=== PATIENT | female | born 1970 | race Caucasian/White ===

== ENCOUNTER → 2018-08-21 | Outpatient (CLI) | payer BC ==
[~2018-08-21] MED LIST: HYDR-2758 PO; MELO7.5T29 PO; TERB250T11 PO
[2018-08-21 15:21] LABS: BASO % 1 % (0-3); EOS # 0.2 x10^3/uL (0.0-0.7); EOS % 3 % (0-3); HEMATOCRIT 37.2 % (36.0-47.0); HEMOGLOBIN 12.9 g/dL (12.0-15.5); LYMPH # 1.2 x10^3/uL (1.0-4.8); LYMPH % 23 % (24-48); MEAN CORPUSCULAR HEMOGLOBIN 30 pg (25-35); MEAN CORPUSCULAR HGB CONC 35 g/dL (31-37); MEAN CORPUSCULAR VOLUME 87 fL (79-100); MONO # 0.6 x10^3/uL (0.0-1.1); MONO % 12 % (0-9); NEUT # 3.1 x10^3uL (1.8-7.7); NEUT % 61 % (31-73); PLATELET COUNT 283 x10^3/uL (140-400); RED BLOOD COUNT 4.26 x10^6/uL (3.50-5.40); RED CELL DISTRIBUTION WIDTH 14.7 % (11.5-14.5); WHITE BLOOD COUNT 5.1 x10^3/uL (4.0-11.0)
[2018-08-21 15:22] LABS: BILIRUBIN,URINE NEGATIVE (NEG); CLARITY,URINE CLEAR; COLOR,URINE YELLOW; NITRITE,URINE NEGATIVE (NEG); PH,URINE 6.5; PROTEIN,URINE NEGATIVE (NEG-TRACE); UROBILINOGEN,URINE 0.2 mg/dL (0.2 mg/dL)
--- NOTE | 2018-08-21 15:32 | RAD ---
Chest, 2 views, 08/21/2018: HISTORY: Preop evaluation for hysterectomy The heart size is normal. No pulmonary infiltrate is seen. There is no evidence of pleural fluid. IMPRESSION: No acute cardiopulmonary abnormality is detected. Electronically signed by: Delmer Ramos MD (08/21/2018 3:28 PM) [facility]
[2018-08-21 15:35] LABS: BACTERIA,URINE 0 /HPF (0-FEW); SQUAMOUS EPITHELIAL CELL,UR MOD /LPF; WBC,URINE OCC /HPF (0-4)
[2018-08-21 15:47] LABS: ALBUMIN 3.5 g/dL (3.4-5.0); ALBUMIN/GLOBULIN RATIO 0.9 (1.0-1.7); CALCIUM 8.8 mg/dL (8.5-10.1); CREATININE 0.6 mg/dL (0.6-1.0); GFR 106.7; POTASSIUM 3.9 mmol/L (3.5-5.1); TOTAL BILIRUBIN 0.3 mg/dL (0.2-1.0); TOTAL PROTEIN 7.3 g/dL (6.4-8.2)
== END ==
LOC: SURGPAT 14:16
PROVIDERS: ATTEND Obstetrics & Gynecology
DX: Z01.818 Encounter for other preprocedural examination (principal)
CPT/HCPCS: 36415; 71046; 80053; 81001; 85025

== ENCOUNTER 2018-08-26 05:47 | Inpatient (IN) | payer BC ==
[~2018-08-26] VITALS: Ht 175.3 cm; Wt 73.5 kg
[2018-08-26] VITALS (11 sets, daily range): BP systolic 92–116; BP diastolic 56–72
[~2018-08-26 05:47] MED LIST changes: +BUPIVAC MPF-EPI 0.5%-1:200000 30 ML VIAL. ONE; +VASOPRESSIN 20 UNIT/ML VIAL. ONE
[2018-08-26] MEDS ORDERED: fentaNYL PF VIAL 100 MCG/2 ML VIAL IV PRN (06:00)
[2018-08-26] MEDS ORDERED: MIDAZOLAM HCL/PF 2 MG/2 ML VIAL. IV PRN (06:00)
[2018-08-26] MEDS ORDERED: LIDOCAINE 1% PF 2 ML VIAL. ID PRN (06:00)
[2018-08-26 06:28] LABS: U PREG PATIENT NEGATIVE (NEG)
[2018-08-26] MEDS: IV RINGERS,LACTATED 1000ML 1,000 ML IV SCH ×2 (06:45→10:31)
[2018-08-26] MEDS ORDERED: fentaNYL PF VIAL 250 MCG/5 ML VIAL ONE (07:13)
[2018-08-26] MEDS ORDERED: MIDAZOLAM HCL/PF 2 MG/2 ML VIAL. ONE (07:13)
[2018-08-26] MEDS ORDERED: ROCURONIUM 50 MG/5 ML VIAL. ONE ×2 (07:13→08:24)
[2018-08-26] MEDS ORDERED: PROPOFOL 20 ML IV ONE ×2 (07:58→09:20)
[2018-08-26] MEDS ORDERED: SEVOFLURANE 61 TO 120 MINUTES. IH ONE (07:58)
[2018-08-26] MEDS ORDERED: KETOROLAC 30 MG/ML INJ FOR OR. INJ ONE (07:58)
[2018-08-26] MEDS ORDERED: DEXAMETHASONE SOD PHOS 20 MG/5 ML VIAL. ONE (07:58)
[2018-08-26] MEDS ORDERED: GLYCOPYRROLATE 1 MG/5 ML VIAL. ONE (07:59)
[2018-08-26] MEDS ORDERED: ONDANSETRON PF 4 MG/2 ML VIAL. ONE (07:59)
[2018-08-26] MEDS ORDERED: ePHEDrine PF IN SALINE 50 MG/5 ML DISP.SYRIN IV ONE (07:59)
[2018-08-26] MEDS ORDERED: NEOSTIGMINE METHYLSULFATE 5 MG/5 ML SYRINGE. ONE (08:00)
[2018-08-26] MEDS ORDERED: PHENYLEPHRINE in 0.9% NACL PF 1 MG/10 ML SYRINGE. IV ONE (08:23)
[2018-08-26] MEDS ORDERED: fentaNYL PF VIAL 100 MCG/2 ML VIAL ONE (09:53)
--- NOTE | 2018-08-26 09:59 | PDOC ---
BRIEF OPERATIVE NOTE Date: Aug 26, 2018 Pre-Op Diagnosis menorrhagia, enlarged fibroid uterus Post-Op Diagnosis same Procedure Performed JOSE/bilateral salpingectomy Surgeon Dr. Deepti Mane Early Childhood Director Brianna Severino, assistant cook RN Anesthesiologist Dr. Alves Anesthesia Type: General Blood Loss 400cc IV Fluid see anesthesia records Urine Output 200cc clear via valentine Specimens Obtained cervix, uterus, bilateral tubes and seperate right pedunculated mass (likely fibroid but having pathology look at it as a fresh specimen just in case) no pelvic adhesive disease Findings very enlarged fibroid uterus, normal bilateral tubes and ovaries, no significant pelvic adhesive disease, large peduncluated mass off right cornua of uterus in RUQ Complications none Operative Note [id number] DEEPTI MANE MD Aug 26, 2018 09:59
[2018-08-26] MEDS ORDERED: PROCHLORPERAZINE 10 MG/2 ML VIAL. ONE (10:08)
[2018-08-26] MEDS ORDERED: ZOLPIDEM 5 MG TABLET. PO PRN (10:15)
[2018-08-26] MEDS ORDERED: SIMETHICONE 80 MG TAB.CHEW PO PRN (10:15)
[2018-08-26] MEDS ORDERED: diphenhydrAMINE 50 MG/ML VIAL IV PRN (10:15)
[2018-08-26] MEDS ORDERED: diphenhydrAMINE HCL 25 MG CAPSULE PO PRN (10:15)
[2018-08-26] MEDS ORDERED: MAGNESIUM HYDROXIDE 2,400 MG/30 ML ORAL.SUSP. PO PRN (10:15)
[2018-08-26] MEDS ORDERED: LACTULOSE 20 GM/30 ML SOLUTION. PO PRN (10:15)
[2018-08-26] MEDS ORDERED: NALOXONE 0.4 MG/ML VIAL. IV PRN (10:15)
[2018-08-26] MEDS ORDERED: ONDANSETRON PF 4 MG/2 ML VIAL. IV PRN (10:15)
[2018-08-26] MEDS ORDERED: METOCLOPRAMIDE HCL 10 MG/2 ML VIAL. IV PRN (10:15)
[2018-08-26] MEDS ORDERED: CALCIUM CARBONATE 500 MG TAB.CHEW PO PRN (10:15)
[2018-08-26] MEDS ORDERED: MAG HYDROX/ALUMINUM HYD/SIMETH 30 ML ORAL.SUSP PO PRN (10:15)
[2018-08-26] MEDS ORDERED: 0.9 % SODIUM CHLORIDE 10 ML DISP.SYRIN. IV PRN (10:15)
[2018-08-26] MEDS ORDERED: MORPHINE SULFATE 2 MG/ML VIAL. IV PRN (10:19)
[2018-08-26] MEDS: MORPHINE SULFATE 2 MG/ML VIAL. IV PRN ×3 (10:19→11:47)
[2018-08-26] MEDS: fentaNYL PF VIAL 100 MCG/2 ML VIAL IV PRN ×2 (10:21→10:32)
[2018-08-26] MEDS ORDERED: PROCHLORPERAZINE 10 MG/2 ML VIAL. IV PRN (10:30)
[2018-08-26] MEDS: KETOROLAC 30 MG/ML VIAL. IV PRN ×2 (11:47→17:27)
--- NOTE | 2018-08-26 12:03 | OP ---
DATE OF SURGERY: 08/26/2018 PREOPERATIVE DIAGNOSIS: An enlarged, likely fibroid uterus with menorrhagia, large, greater than 27 cm abdominal mass, especially extending into the right upper quadrant. POSTOPERATIVE DIAGNOSIS: An enlarged, likely fibroid uterus with menorrhagia, large, greater than 27 cm abdominal mass, especially extending into the right upper quadrant. PROCEDURE: Total abdominal hysterectomy and bilateral salpingectomy. SURGEON: Parish Gifford M.D. [employer] SAL[employer] BEAUTY ADVISOR: Brianna , first, assistant professor in family studies. ANESTHESIOLOGIST: Driss Plummer M.D. ANESTHESIA: General endotracheal. ESTIMATED BLOOD LOSS: 400 mL. URINE OUTPUT: 200 mL clear via Gomez catheter. SPECIMENS OBTAINED: Cervix, uterus, bilateral tubes and a separate, what appears to be a large right pedunculated mass of the right cornua of the uterus, likely a fibroid, but I am having pathology look at it right now as a first specimen. No significant pelvic adhesive disease. FINDINGS: A very enlarged fibroid uterus, normal bilateral tubes and ovaries. No significant pelvic adhesive disease, large pedunculated mass of the right cornua that was extending into the right upper quadrant. COMPLICATIONS: None. DESCRIPTION OF PROCEDURE: This patient was taken to the operating room, where general anesthesia was placed. The patient was placed in a dorsal supine position. A Gomez catheter was inserted under sterile technique after anesthesia was induced. Upon my arrival, she had already received her antibiotics, was supine with a catheter and prepped and draped and once everyone agreed on the timeout, scrubbed and I was gowned and gloved, a transverse Pfannenstiel skin incision was made with the scalpel, carried down to the underlying layer of the fascia with the Bovie cautery. Cautery was used to obtain hemostasis in the subcuticular layer. Fascia was scored in the midline and extended sharply bilaterally with the Nesbitt scissors. Hubert clamps x 2 were placed on the superior fascial edge and the fascia was dissected from the rectus muscles beneath sharply and bluntly. This was done inferiorly as well down to the level of the pubic bone. Going high under the umbilicus, the rectus muscles were in the midline and the peritoneum was digitally and bluntly entered and stretched. The Metzenbaum scissors were used to sharply take down the filmy peritoneum and then stretched again. I was able to lift part of the uterus. It was multilobulated, enlarged, with multiple small and large fibroids. One or two of the fibroids were small and actually were almost like handles and when manipulating, they had kind of even torn off and those were passed off for permanent pathology. I was not able to get the mass out of the right upper quadrant through the small transverse Pfannenstiel skin incision with the large. So, I crossed the cornua of the uterus with curved Heaneys x 2 and left a Ottoniel on the mass and then tied off the other Ottoniel on the right cornua. I was able to then lift out the enlarged fibroid uterus and identify normal anatomy. So, starting on the left side, crossing the round ligament, stick tying it x 2 with 0 Vicryl using the Bovie cautery in the middle, going down and making that bladder flap anteriorly, this was done exactly the same on the right side, getting the round ligament in 2 spots with the stick tied to 0 Vicryl, then cauterizing in the middle and going down and meeting that bladder flap, taking it down sharply and bluntly with the Metzenbaum scissors, placing a curved Mora inside the bladder flap and then using a Ray-Paul to gently push down the bladder peritoneum and making sure it was off the uterus and cervix. At this point, a Ottoniel was used to go under the tube. It was very enlarged and vascular due to the uterus and go under it to do the salpingectomy, I placed the Ottoniel and then used the cautery to go above it and then used a free tie on the Ottoniel on both sides to free up the tube. Then going through the uterine-ovarian pedicle, using a clear window and cauterizing over my finger, placing curved Heaneys x 2 around the uterine-ovarian pedicle, placing Pean on both the cornua of the uterus, leaving both ovaries per the patient request, crossing the uterine-ovarian pedicle x 2, cutting and then tying x 2 with a stick tie before and after like a [place] tree stretch and then a stick tie. This was done on both sides, leaving both ovaries. Once this was done, skeletonization was performed on both sides until the uterine vessels could be obtained on both sides, placing curved Heaneys on both sides and then a straight Hubert on the back bleeding above on both sides and cutting it with the Nesbitt scissors and suture ligating it x 2. This was done on both uterines. So, starting on the right side, double clamping the uterines with curved Heaneys and then stick tying x 2 on both sides, starting on the right and then on the left. Once I did this, I made sure the bladder flap was down again and once it was assured to be down, taking straight Heaneys inside that pedicle, staying hugging right on the cervix, elevating the uterus, pulling it up and staying right on the cervix using straight Heaneys x 2 and then the knife to cut it and stick tying it x 2. This was done on both sides down to the level of the uterosacral, so 2-3 bites through the cardinal and broad ligaments with straight Heaneys. Once I got down to the uterosacrals on the right side, I was able to doubly clamp with curved Heaneys and when I cut with the Nesbitt scissors, I was in the vagina and the cervix popped out. I then used the Gely's to go around under visualization and amputate the remainder of the specimen. I placed Kochers on the anterior and posterior vaginal cuff respectively and then I used 0 Vicryl at the corners on both sides coming from inside out and through the uterosacrals that I had tagged and tagging the corners again and then 3 or 4 interrupted [id number] stitches to go across the vaginal cuff, closing the vaginal cuff. Once this was done, I then went back in and delivered the remaining pedicle. The big enlarged fibroid that came out and it was easily delivered in toto. Copious irrigation revealed hemostasis. I did place Lori over the pedicles and cuff just to be sure and looked at them several times and they were hemostatic, but the abdomen was further examined. I made sure the pericolic gutters were clear, that there were no clots or any debris left in after this mass was removed. The mass was almost equally as big as the uterus and the uterus was greater than 16-18 cm and then there was another 16-18 cm mass that was pedunculated off the right cornua that was separate. Once it was done, and the irrigation was hemostatic and Lori was placed and re-examined, the fascia was closed from left to midline with 0 Vicryl and then right to midline and tied together. Before tying it together, I did look in the pelvis one more time to make sure it was hemostatic and it was. The subcuticular layer was irrigated and was clear. There was no more bleeding. A 3-0 Vicryl was used to close the subcuticular layer and then 3-0 Monocryl was used to close the skin with Steri-Strips. All sponge, lap and needle counts were correct x 2. The patient was awakened from anesthesia, extubated and brought to recovery room in stable condition. PARISH GIFFORD MD DR: REKHA/larissa JOB#: [id number] / [id number]
[2018-08-26] MEDS: oxyCODONE/APAP 5/325 1 TAB TABLET PO PRN ×2 (16:24→21:01)
[2018-08-27 05:58] LABS: CALCIUM 7.9 mg/dL (8.5-10.1); CREATININE 0.6 mg/dL (0.6-1.0); GFR 106.7; POTASSIUM 4.3 mmol/L (3.5-5.1)
[2018-08-27 06:11] VITALS: BP 87/59
[2018-08-27] MEDS: HYDROcodone/APAP 5/325MG 1 TAB TABLET PO PRN ×3 (06:24→20:54)
[2018-08-27] MEDS: KETOROLAC 30 MG/ML VIAL. IV PRN (10:53)
[2018-08-27 12:30] VITALS: BP 104/49
--- NOTE | 2018-08-27 12:38 | PDOC ---
SURGICAL PROGRESS NOTE Subjective Doing well without complaints. Scant spotting when urinating, but ambulating and urinating without catheter. Tolerating regular diet without n/v. Vital Signs Vital Signs Date Time Temp Pulse Resp B/P (MAP) Pulse Ox O2 Delivery O2 Flow Rate FiO2 08/27/18 06:11 98.3 75 16 87/59 (68) 98.3 08/26/18 23:11 94 08/26/18 19:55 Nasal Cannula 2.0 I&O Intake and Output 08/27/18 07:00 Intake Total 4370 ml Output Total 2125 ml Balance 2245 ml Intake Oral 1020 ml IV Total 2050 ml Other 1300 ml Output Urine Total 1325 ml Estimated Blood Loss 800 ml PATIENT HAS A RUST: No General: Alert, Oriented X3, Cooperative, No acute distress HEENT: Atraumatic Heart: Regular rate Abdomen: Soft, No tenderness, Other (incision c/d/i with steri strips in place) Extremities: No clubbing, No cyanosis, No edema, No tenderness/swelling Skin: No rashes, No breakdown Neuro: Normal speech Psych/Mental Status: Mental status NL, Mood NL Labs Laboratory Tests Test 08/26/18 06:25 08/27/18 04:20 08/27/18 04:25 Urine Test Negative (NEG) Sodium Level 141 mmol/L (136-145) Potassium Level 4.3 mmol/L (3.5-5.1) Chloride Level 108 mmol/L (98-107) Carbon Dioxide Level 26 mmol/L (21-32) Anion Gap 7 (6-14) Blood Urea Nitrogen 9 mg/dL (7-20) Creatinine 0.6 mg/dL (0.6-1.0) Estimated GFR (Cockcroft-Gault) 106.7 Glucose Level 115 mg/dL (70-99) Calcium Level 7.9 mg/dL (8.5-10.1) Hematocrit 26.6 % (36.0-47.0) Laboratory Tests Test 08/27/18 04:20 08/27/18 04:25 Sodium Level 141 mmol/L (136-145) Potassium Level 4.3 mmol/L (3.5-5.1) Chloride Level 108 mmol/L (98-107) Carbon Dioxide Level 26 mmol/L (21-32) Anion Gap 7 (6-14) Blood Urea Nitrogen 9 mg/dL (7-20) Creatinine 0.6 mg/dL (0.6-1.0) Estimated GFR (Cockcroft-Gault) 106.7 Glucose Level 115 mg/dL (70-99) Calcium Level 7.9 mg/dL (8.5-10.1) Hematocrit 26.6 % (36.0-47.0) I have reviewed the following labs, vitals and nursing Cardiovascular: No pertinent hx Pulmonary: No pertinent hx GI: No pertinent hx Heme/Onc: Anemia NOS Psych: No pertinent hx Assessment/Plan POD#1 s/p JOSE/bilateral salpingectomy Routine PO care anemia--start bid iron with meals continue to ambulate and watch today for progress if all goes well today, possible d/c tomorrow PARISH GIFFORD MD Aug 27, 2018 12:38
[2018-08-27 15:45] VITALS: BP 105/68
[2018-08-27] MEDS: oxyCODONE/APAP 5/325 1 TAB TABLET PO PRN (16:01)
[2018-08-27] MEDS: FERROUS SULFATE 325 MG TABLET. PO SCH (16:02)
[2018-08-27 18:20] VITALS: BP 98/57
[2018-08-27 21:06] VITALS: BP 110/71
[2018-08-28 02:39] VITALS: BP 116/75
[2018-08-28] MEDS: HYDROcodone/APAP 5/325MG 1 TAB TABLET PO PRN ×2 (02:42→13:55)
[2018-08-28] MEDS: FERROUS SULFATE 325 MG TABLET. PO SCH (07:37)
[2018-08-28] MEDS: oxyCODONE/APAP 5/325 1 TAB TABLET PO PRN ×2 (07:37→12:36)
[2018-08-28] MEDS ORDERED: DOCUSATE SODIUM 100 MG CAPSULE. PO PRN (08:30)
[2018-08-28] MEDS ORDERED: IBUPROFEN 400 MG TABLET. PO PRN (08:30)
--- NOTE | 2018-08-28 08:56 | PDOC ---
SURGICAL PROGRESS NOTE Subjective Doing well without complaints. Voiding without problems, tolerating full diet, ambulating well. Wants to go home today Vital Signs Vital Signs Date Time Temp Pulse Resp B/P (MAP) Pulse Ox O2 Delivery O2 Flow Rate FiO2 08/28/18 07:37 18 Room Air 08/28/18 02:42 95 95.0 08/28/18 02:39 98.7 79 116/75 (89) 98.7 I&O Intake and Output 08/28/18 07:00 Output Total 375 ml Balance -375 ml Output Urine Total 375 ml PATIENT HAS A RUST: No General: Alert, Oriented X3, Cooperative, No acute distress HEENT: Atraumatic Heart: Regular rate Abdomen: Soft, No tenderness, Other (incision c/d/i with steri strips) Extremities: No clubbing, No cyanosis, No edema, No tenderness/swelling Skin: No rashes, No breakdown Neuro: Normal speech Psych/Mental Status: Mental status NL, Mood NL Labs Laboratory Tests Test 08/27/18 04:20 08/27/18 04:25 Sodium Level 141 mmol/L (136-145) Potassium Level 4.3 mmol/L (3.5-5.1) Chloride Level 108 mmol/L (98-107) Carbon Dioxide Level 26 mmol/L (21-32) Anion Gap 7 (6-14) Blood Urea Nitrogen 9 mg/dL (7-20) Creatinine 0.6 mg/dL (0.6-1.0) Estimated GFR (Cockcroft-Gault) 106.7 Glucose Level 115 mg/dL (70-99) Calcium Level 7.9 mg/dL (8.5-10.1) Hematocrit 26.6 % (36.0-47.0) I have reviewed the following labs, vitals, nursing Cardiovascular: No pertinent hx Pulmonary: No pertinent hx GI: No pertinent hx Heme/Onc: Anemia NOS Psych: No pertinent hx Rheumatologic: No pertinent hx Assessment/Plan POD#2 s/p JOSE/bilateral salpingectomy routine po care d/c to home later today already has pain script at home may alternate OTC ibuprofen as needed keep scheduled follow up with me in the office call or return sooner for any other questions or concerns not limited to but including pain unrelieved with pain meds, increased or unexplained vaginal bleeding or T>100.4 NPV x 6 weeks light/limited activity x [address] while on narcotic pain pills PARISH GIFFORD MD Aug 28, 2018 08:56
--- NOTE | 2018-08-28 09:00 | PDOC3 ---
Discharge Summary Visit Information Date of Admission: Aug 26, 2018 Date of Discharge: Aug 28, 2018 Admitting Diagnosis Comment: menorrhagia, enlarged fibroid uterus Brief Hospital Course Allergies Allergies Coded Allergies Type Severity Reaction Last Updated Verified No Known Drug Allergies 08/26/18 No Vital Signs Vital Signs Date Time Temp Pulse Resp B/P (MAP) Pulse Ox O2 Delivery O2 Flow Rate FiO2 08/28/18 07:37 18 Room Air 08/28/18 02:42 95 95.0 08/28/18 02:39 98.7 79 116/75 (89) 98.7 Lab Results Laboratory Tests Test 08/27/18 04:20 08/27/18 04:25 Sodium Level 141 mmol/L (136-145) Potassium Level 4.3 mmol/L (3.5-5.1) Chloride Level 108 mmol/L (98-107) Carbon Dioxide Level 26 mmol/L (21-32) Anion Gap 7 (6-14) Blood Urea Nitrogen 9 mg/dL (7-20) Creatinine 0.6 mg/dL (0.6-1.0) Estimated GFR (Cockcroft-Gault) 106.7 Glucose Level 115 mg/dL (70-99) Calcium Level 7.9 mg/dL (8.5-10.1) Hematocrit 26.6 % (36.0-47.0) Brief Hospital Course Ms. Joe is a 47 old female who presented with enlarged fibroid uterus. She underwent a JOSE/bilateral salpingectomy without complications. She has had an unremarkable postoperative course with AF VSS, ambulating well, voiding without catheter and tolerating full diet. She is desiring to go home today Discharge Information Condition at Discharge: Stable Follow Up: Weeks Disposition/Orders: D/C to Home Scheduled Meloxicam (Meloxicam) 7.5 Mg Tablet, 1 TAB PO DAILY, #30 Ref 2 (Reported) Entered as Reported by: Megan Teague on 08/21/181436 Last Taken: Unknown Dose on 08/17/18 Last Action: HELD on 08/26/18 0735 by PARISH GIFFORD Terbinafine Hcl (Terbinafine Hcl) 250 Mg Tablet, 1 TAB PO DAILY, #14 (Reported) Entered as Reported by: Megan Teague on 08/21/181436 Last Taken: Unknown Dose on 08/17/18 Last Action: HELD on 08/26/18734 by PARISH GIFFORD Scheduled PRN Hydrocodone Bit/Acetaminophen (Hydrocodone-Apap 5-325 ) 1 Each Tablet, 3 TAB PO DAILY PRN for PAIN, Ref 0 (Reported) Entered as Reported by: Megan Teague on 08/21/18 1437 Last Taken: Unknown Dose on 08/23/18 Last Action: HELD on 08/26/18734 by PARISH GIFFORD Patient Instructions Patient Instructions POD#2 s/p JOSE/bilateral salpingectomy routine po care d/c to home later today already has pain script at home may alternate OTC ibuprofen as needed keep scheduled follow up with me in the office call or return sooner for any other questions or concerns not limited to but including pain unrelieved with pain meds, increased or unexplained vaginal bleeding or T>100.4 NPV x 6 weeks light/limited activity x [address] while on narcotic pain pills PARISH GIFFORD MD Aug 28, 2018 09:00
[2018-08-28 14:08] VITALS: BP 116/77
--- NOTE | 2018-08-31 12:06 | PATHOLOGY ---
[facility] Accession Number: [id number] . 01 Material submitted: . UTERUS, TUBES, AND FIBROIDS . 01 Clinical history: . Menorrhagia and enlarged uterus . 02 Diagnosis: Uterus, tubes and fibroids: Cervix: - No significant pathologic abnormality. - Negative for dysplasia and malignancy. . Endometrium: - Proliferative endometrium. - Negative for hyperplasia and malignancy. . Myometrium: - Adenomyosis. - Adenomyoma. - Leiomyomata with focal degenerative change. - See comment. . Right and left fallopian tubes: - Fallopian tubes with paratubal cysts. - Negative for dysplasia and malignancy. . [place] R/08/28/2018 . 02 Comment: Present in this specimen are multiple leiomyomata and adenomyomas. Rare mitotic figures are present among the submitted sections of leiomyomata. These mitoses while present, are not sufficient in number to qualify for mitotically active leiomyoma. Other features of malignancy are not identified. These findings are compatible with benign leiomyomata. Clinical correlation is recommended. . Co-review on this case was Dr. Pulliam. . [place] . 02 Electronically signed: . Maynor Montgomery MD, Pathologist NPI- [id number] . 01 Gross description: . The specimen is received fresh and is designated "uterus, tubes and fibroids". The specimen is received in several parts. The first consists of a separate detached pedunculated bosselated pink to plummer fibroid which weighs 968 grams and measures 16.5 cm in greatest dimension. This has a plummer-white whorled rubbery cut surface typical of a fibroid. The next is a separate detached pink-plummer fibroid which weighs 24 grams and measures 4.2 cm in greatest dimension. This also has a plummer-white whorled rubbery cut surface typical of a fibroid. The next specimen consists of a detached segment of pink-plummer fallopian tube measuring 7.5 cm in length and 0.6 cm in diameter. There is a cyst adjacent to the fimbriated end. . The next specimen consists of an enlarged distorted uterus with attached fallopian tube weighing 1,452 grams. The uterus measures approximately 23 cm in length, up to 10 cm in width and 11.0 cm in anterior posterior thickness. There is an attached fimbriated segment of pink-plummer fallopian tube measuring up to 19.5 cm in length and 0.7 cm in diameter. The uterine serosa is reddish-orange and hyperemic. There are two pedunculated red-plummer serosal fibroids measuring 3.0 and 6.0 cm in greatest dimension. The remainder of the uterus is also distorted by subserosal and intramural fibroids. The uterine cervix measures 5.0 cm in length. The exocervix measures 3.5 x 3.0 cm and is plummer and glistening. There is a central small punctate os. The uterus is opened longitudinally. The endocervical canal is plummer. The endometrial cavity has a triangular shape and measures up to 10.5 cm in length. The endometrium is plummer and uniform and measures up to 0.2 cm in thickness. There is a submucosal plummer-white myoma measuring up to 1.8 cm. There are multiple intramural and subserosal pink-plummer and plummer white myomas having a whorled rubbery cut surface typical of fibroids. The largest of these appears to measure up to 9.0 cm in greatest dimension. There are also focal plummer nodular areas of apparent adenomyosis. . The detached fibroids are further sectioned to reveal multifocal cystic areas within the larger detached fibroid.the remainder of the separate fibroids displays no areas of hemorrhage, necrosis, or calcifications. Sectioning the separate fallopian tube reveals a central lumen and no gross lesions. . Serial sectioning the uterus/cervix reveals a myometrium up to 6.0 cm with multiple intramural, submucosal, and subserosal nodules ranging from 0.4 cm to 9.0 cm. A few of these nodules show areas of hemorrhage and cystic degeneration containing hemorrhagic fluid. The remainder of the nodules have cut surfaces that are white-plummer, whorled, and homogeneous. The myometrium shows evidence of adenomyosis. Sectioning the attached fimbriated fallopian tube reveals a central lumen and no gross lesions. Unloader Operator sections are submitted as follows: . A1: Smaller separate nodule A2-A3: Larger separate nodule A4: Separately received fallopian tube A5-A6: Opposing cervix A7-A8: Opposing endomyometrium with submucosal nodules A9: Nodule with cystic degeneration and adjacent adenomyosis A10: Nodule with hemorrhage A11: Attached fimbriated fallopian tube (SDY; 08/27/2018) . INTRAOPERATIVE CONSULTATION WITH GROSS IMPRESSION: . Uterus with attached fallopian tube and separate detached segment of fallopian tube and two separate fibroids, excision: - Uterine fibroids, multiple, serosal/intramural and submucosal, the largest of which is detached from the uterus and measures cm in greatest dimension, producing enlargement and nodular distortion of the uterine corpus. - Adenomyosis of uterine corpus, focal. - The results are reported to Dr. Mane in the operating room. (JPM:[facility] 08/26/2018) . Intraoperative Consultation performed at [facility], [address] [place] [id number]. /QTP . 02 Pathologist provided ICD-10: D25.9, N80.0, N83.8, N92.0 . 02 CPT . 296778 Specimen Comment: A courtesy copy of this report has been sent to Specimen Comment: [phone]. Specimen Comment: Report sent to Performed at: [address], [place], [place] [id number] MD Shekhar George MD Phone: [phone] Performed at: [facility] [address] [place], [place] [id number] MD Dot Resendez MD Phone: [phone]
== END 2018-08-28 15:33 | disposition home or self-care (01) | DRG 743 ==
LOC: OPSVCIP 05:47 → EDUNIT# 07:30 → 3 NORTH 12:51
PROVIDERS: ADMIT Obstetrics & Gynecology; ATTEND Obstetrics & Gynecology
PROC: 0UB70ZZ Excision of Bilateral Fallopian Tubes, Open Approach (ICD-10-PCS; 2018-08-26)
PROC: 0UT90ZZ Resection of Uterus, Open Approach (ICD-10-PCS; principal; 2018-08-26 07:30)
DX: D25.9 Leiomyoma of uterus, unspecified (principal); N92.0 Excessive and frequent menstruation with regular cycle; D64.9 Anemia, unspecified
CPT/HCPCS: 36415; 80048; 81025; 85014; 86850; 86900; 86901; 88307; A7015; J0690; J0780; J1100; J1885; J2250; J2270; J2370; J2405; J2704; J2710; J3010; J3490; J7120; A4461